=== PATIENT | female | born 2000 | race Caucasian/White ===

== ENCOUNTER 2023-05-18 14:10 | Outpatient (AMB) | payer OTHER, SELFPAY ==
--- NOTE | 2023-05-18 14:23 | A.OFFVIS_ITS ---
Intake VS Expanded 05/18/23 14:24 05/25/23 11:29 Height 5 ft 4 in 5 ft 4 in Weight 223 lb 1.725 oz 223 lb BMI 38.3 38.3 Intake Visit Reasons: Obesity/Confirmed HPI Nutrition Presentation Details Pt presents for MNT obesity, endometriosis. Pt was referred by primary care provider, Halima PONCE from [facility] Pt reports having irregular meal patterns Typically has water ,coffee/milk/sugar snacks peanut butter crackers of granola bars, candies L/D: cold cut /sand or order (chick filet Maori fries/drink) dinner: chicken/steak noodles or potatoes canned vegetables carrots/corn/green zucchini, green beans (with ketchup), water stopped soda intake food frequency fruits not including milk: yoplait , 1% milk, 2x/d protein foods : 12 oz/d ve serving/d combination starchy/non starchy veg starches > 20 servings pastries/cookies : daily juices/soda:reducing 1/day physical activity daily life activities VCB-Foqlozd-Br.Jeor Equation Height 5 ft 4 in Weight 223 lb Resting Metabolic Rate 1752.34 Calculated Activity Level Sedentary Calories Needed to Maintain Weight 2102.81 Diagnosis Nutrition problem #1 food nutri know defi As related to (etiology) #1 diagnosis (bmi 38.3 on 04/2023) As evidenced by (sign/symptom) #1 knowledge deficit of diet Monitoring/Goals Nutrition problem monitoring level of knowledge/skill and weight Nutrition goal/outcome list 3 CHO foods and wt loss 5lbs in 2 months Outcome progress verbalized understanding Learning/Education Readiness to learn good Stages of change preparation Educational materials provided Yes (meal planning) Most Recent Diabetes Results: No Data to Display Assessment & Plan Assessment & Plan (1) Obesity (BMI 30-39.9): Code(s): E66.9 - Obesity, unspecified Plan: wt: 101 kg Est kcal needs as per MSJ: 2100 (40% carb, 30% protein/fat) Est fluid needs as per 30 ml/d: 3000 Est prot per day as per 1 g/kg bw: 101 Recommend fiber intake : 8-10 g per day and gradually increase to 25-28 g per day for women and 35-38 g for men or as tolerated Recommend sodium intake per day : less than 1500 mg less than 2000 mg Educated patient on: ( R = reviewed V = verbalizes understanding N/R = needs review N/A = not applicable * Food sources of carbohydrate, adequate serving sizes and its role in various health conditions: R * Differences between complex carbohydrates a simple carbohydrates, role of fiber in diet: R * Differences between types of fats and role in diet (mono on saturated fat fatty acids, saturated fatty acids, trans fats): R basic * Food sources of sodium in salt and healthy modifications for heart health in kidney health: NR * Vitamins and minerals: R (related to hx of fe def anemia * Healthy plate method concept: R V * Physical activity: Benefits a precaution: R Patient Instructions: Work on having 3 meal a day planning Reduce on your carbs to 60 g at a meal following healthy plate method Reduce on sugars (pastries/cookies, candies and the like) practice mindful eating f/u review naturally GF sources of foods Coding Level of Care Code Nutr Indiv Intake (22662) Diagnoses Obesity (BMI 30-39.9) E66.9 Time Spent (min) 30
[2023-05-18 14:24] VITALS: BMI 38.3
[2023-05-25 11:29] VITALS: BMI 38.3
== END 2023-05-18 15:08 | disposition home or self-care (01) ==
PROVIDERS: PCP Physician Assistant Medical; Visit Provider Dietitian, Registered
DX: E66.9 Obesity, unspecified (principal)

== ENCOUNTER → 2023-05-18 14:10 | Outpatient (BNVA) | payer OTHER, SELFPAY | PROVIDERS: PCP Physician Assistant Medical; Visit Provider Dietitian, Registered | DX: E66.9 Obesity, unspecified (principal); Z68.38 Body mass index [BMI] 38.0-38.9, adult; Z71.3 Dietary counseling and surveillance | CPT/HCPCS: 97802 ==